=== PATIENT | female | born 1985 | race Caucasian/White ===

== ENCOUNTER 2024-09-29 13:13 | Outpatient (CLI) | payer OTHER, SELFPAY | END 2024-09-29 13:14 | disposition home or self-care (01) | LOC: NFLDREF 10-02 12:02 | PROVIDERS: Visit Provider Obstetrics & Gynecology | DX: Z34.93 Encounter for supervision of normal pregnancy, unspecified, third trimester (principal); E03.9 Hypothyroidism, unspecified; Z3A.28 28 weeks gestation of pregnancy; Z86.2 Personal history of diseases of the blood and blood-forming organs and certain disorders involving the immune mechanism | CPT/HCPCS: 82728; 84443; 86592 ==

== ENCOUNTER 2024-11-12 07:10 | Outpatient (CLI) | payer OTHER, SELFPAY ==
--- OUTSIDE RECORDS SUMMARY | 2024-11-11 15:41 | XMS_ITS | Clinical Summary ---
Author Organization [facility] Address [address] [place] [address] Care Team Providers Care Sleeve Turner Name Role Phone Unavailable Primary Care Provider Unavailabl e Source Comments You are receiving this document as you are listed as the primary care provider,follow-up provider, or the patient has been referred to you for consultation.This is in compliance with the Medicare andMedicaid EHR Incentive Program,which states Providers who transition their patient to another setting of careor provider of care or refers their patient to another provider of care shouldprovide summary care record for each transition of care or referral. [facility] Allergies No known active allergies Medications Medication Sig Dispensed Refills Start Date End Date Status levothyroxine (SYNTHROID) 100 MCG tablet Take 1 Tablet (100 mcg) by mouth daily. Active methocarbamol (ROBAXIN) 500 MG tablet 1 po qd to bid prn muscle spasm 21 Tablet 1 02/01/2024 Active Active Problems No known active problems Social History Tobacco Use Types Packs/Day Years Used Date Smoking Tobacco: Never Passive Smoke Exposure: Never Smokeless Tobacco: Never Tobacco Cessation:Counseling Given: Not Answered Sex and Gender Information Value Date Recorded Sex Assigned at Not on file Gender Identity Not on file Sexual Orientation Not on file Last Filed Vital Signs Vital Sign Reading Time Taken Comments Blood Pressure 112/81 02/01/2024 8:18 AM CDT Pulse 72 02/01/2024 8:18 AM CDT Temperature 36.7 C (98.1 F) 02/01/2024 8:18 AM CDT Respiratory Rate 18 02/01/2024 8:18 AM CDT Oxygen Saturation 100% 02/01/2024 8:18 AM CDT Inhaled Oxygen Concentration - - Weight - - Height - - Body Mass Index - - Plan of Treatment Health Maintenance Due Date Last Done Comments Cervical Cancer Screening Due 1986 Hep C Screening (Preventive Services) 1986 HIV Screening (Preventive Services) 2002 Adult Preventive Visit 2004 DTaP/Tdap/Td (1 - Tdap) 2005 HepB (1) 2005 COVID-19 Vaccine (1 - 2023-2 5 season) 2024 Influenza (#1) 2024 Zoster/Shingles (1 of 2) 2036 HPV Vaccine Aged Out No longer eligi ble based on patient's age to complete this topic HepA Aged Out No longer eligi ble based on patient's age to complete this topic Hib Aged Out No longer eligi ble based on patient's age to complete this topic IPV (Polio) Aged Out No longer eligi ble based on patient's age to complete this topic MCV4 Aged Out No longer eligi ble based on patient's age to complete this topic Pneumococcal Aged Out No longer eligi ble based on patient's age to complete this topic
--- NOTE | 2024-11-12 07:15 | CRLHL7_ITS ---
For Patients: As a result of the Century Cures Act, medical imaging exams and procedure reports are released immediately into your electronic medical record. You may view this report before your referring provider. If you have questions, please contact your health care provider. INDICATION: AMA, hx bariatric surgery COMPARISON: none TECHNIQUE: Real time berg scale imaging of the fetus was performed. FINDINGS/IMPRESSION: Sonographic imaging demonstrates a single living intrauterine gestation. Fetus demonstrates a regular cardiac rate of 155 beats per minute. Fetus has a vertex position. The placenta lies posteriorly. Amniotic fluid volume appears normal and there is a single deepest vertical pocket: 5.3 cm. The estimated weight is 2640gm which lies at the 55th %. BPD 11th percentile. HC 19th percentile. AC 85th percentile. FL 29th percentile. The HC/AC ratio measures 0.97 range (0.93-1.11). Sonographic gestational age 34 weeks 5 days and sonographic due date of 12/19/2024. Good correlation with dates. Dictated by Ta Powell MD @ 11/12/2024 9:21:26 AM (Electronically Signed)
== END 2024-11-12 07:11 | disposition home or self-care (01) ==
PROVIDERS: Visit Provider Obstetrics & Gynecology
DX: O09.519 Supervision of elderly primigravida, unspecified trimester (principal)
CPT/HCPCS: 76816; 82728; 84443; 86787

== ENCOUNTER 2024-11-12 08:10 | Outpatient (CLI) | payer OTHER, SELFPAY | END 2024-11-12 08:11 | disposition home or self-care (01) | LOC: NFLDREF 11-14 04:15 | PROVIDERS: PCP Obstetrics & Gynecology; Visit Provider Obstetrics & Gynecology | DX: O09.513 Supervision of elderly primigravida, third trimester (principal); E03.9 Hypothyroidism, unspecified; Z3A.35 35 weeks gestation of pregnancy | CPT/HCPCS: 82728; 84443; 86787 ==

== ENCOUNTER 2024-11-19 10:45 | Outpatient (CLI) | payer OTHER, SELFPAY | END 2024-11-19 10:46 | disposition home or self-care (01) | LOC: NFLDREF 11-27 18:41 | PROVIDERS: PCP Registered Nurse; Visit Provider Registered Nurse | DX: Z34.93 Encounter for supervision of normal pregnancy, unspecified, third trimester (principal); D64.9 Anemia, unspecified | CPT/HCPCS: 87081; 87653 ==

== ENCOUNTER 2024-12-07 10:40 | Outpatient (RCR) | payer OTHER, SELFPAY ==
--- NOTE | 2024-12-03 13:12 | URNOTE ---
Request received for authorization for Iron Dextran (Infed) ([id number]). Prior authorization is not required as services are based on medical necessity per [facility] site, Ref#[id number].
[2024-12-07 11:20] VITALS: BP 99/65; PULSE 75; RESP 16; TEMP 36.1; O2SAT 95
[2024-12-07] MEDS: IRON DEXTRAN COMPLEX 25 MG in 0.9 % SODIUM CHLORIDE 100 ml 100 ML 402 MG IVPB (11:32)
[2024-12-07 11:54] VITALS: BP 94/62; PULSE 81; RESP 16; O2SAT 96
[2024-12-07] MEDS: IRON DEXTRAN COMPLEX 975 MG in 0.9 % SODIUM CHLORIDE 250 ml 250 ML 269.5 MG IVPB (12:55)
[2024-12-07 14:30] VITALS: BP 100/65; PULSE 74; RESP 16; TEMP 36.3; O2SAT 97
== END 2025-06-05 23:59 | disposition home or self-care (01) ==
LOC: CCIC 10:40
PROVIDERS: Visit Provider Clinical Nurse Specialist
DX: O99.013 Anemia complicating pregnancy, third trimester (principal); D50.9 Iron deficiency anemia, unspecified
CPT/HCPCS: 96365; 96366; J1750; J7050

== ENCOUNTER 2024-12-21 09:21 | Inpatient (IN) | payer OTHER, SELFPAY ==
[2024-12-21] VITALS (115 sets, daily range): BP systolic 83–124; BP diastolic 49–84; PULSE 60–107; TEMP 36.6–37.1; O2SAT 85–100; BMI 27.1
--- NOTE | 2024-12-21 10:01 | P.LDBA_ITS ---
Subjective History of Present Illness Date Seen: 12/21/24 Narrative: Patient is being admitted to Labor and Delivery for IOL due to post term dates. She is a 39 year old at 40 4/7 weeks gestation. Her full history and physical was dictated by Dr. Alcantara on 11/25/24. Please see this for details. Patient seen today in clinic with concerns of decreased movements for the past 2 days. She has IOL scheduled for this Friday at 41 weeks. Patient denies abnormal vaginal discharge, sporadic uterine contractions. Patient with multiple medical comorbidities and due to significant concerns at post term dates, recommendation was given to stay for IOL today and patient prefers this as well. Specific Issues/Plans G 4 P 1021 H&P 11/25 Dr. Alcantara # Transfer of care at 26 5/7 weeks #Advanced Maternal Age NIPT: Not completed, Negative AFP Level 2 US: Basic Anatomy US normal [x] growth US at 34 weeks #Hypothyroidism. On levothyroxine 100 mcg daily outside of Levothyroxine increased to 112 mcg daily on August 16. TSH 2.1 on 09/29 TSH 3.1 on 11/12; increased to 125 on 12/09 125 mcg today; will decrease to 100 mcg daily after of baby and repeat TSH at 6 weeks #History of Anemia Hgb 07/21: 10.2. ferritin level dropped (do not see lab report of ferritin). Had 2 of 5 iron infusions. HGB at 28 weeks: 10.6 mg/dL with ferritin of 11, start PO iron Hemoglobin 10.5, ferritin 5.3 on 11/12/2024 Repeat 12/02: 10.3 #History of gastric sleeve surgery 2014 # closely spaced pregnancies. Delivery 09/25/2023. # history of depression. Never treated with medication. PHQ 5, ARI 7. Increased stress due to recent move. Flu: completed Covid: 11-6-24 05/21/2024: Blood type O positive, antibody screen negative, hemoglobin 11.3, platelets 340, rubella immune, RPR nonreactive, hepatitis-B antigen negative, HIV nonreactive, chlamydia gonorrhea both negative, urine culture negative, hepatitis-C negative, varicella[], NIPT: Negative, drug screen negative, hemoglobin A1c 5.5 07/21/2024: AFP negative. Hemoglobin 10.2. 08/12/2024: TSH 4.59, T4 11.6, T3 14. Vitamin-D 35.3 Pap smear 05/07/2024: Normal, negative HPV 11/15/24: Varicella immune Ultrasound: 05/07/2024 first-trimester ultrasound for dating and viability: size appropriate for gestational age. Yolk sac seen. Normal heart rate observed. Cervix appears long and closed on today's exam. 06/02/2020 1st trimester screen for dating viability: size appropriate for gestational age, LMP, CRL measures 11 weeks 2 days. NT measures 0.82 mm. Normal heart rate observed. Anteverted uterus. Cervix appears long, closed, no funneling. 08/10/2024 anatomy scan: size is slightly smaller for gestational age. (no EFW seen in report) Normal heart rate, amniotic fluid amount within normal limits. The cervix is long with no evidence of funneling. Position transverse head maternal right spine posterior. Placenta posterior grade 1. No gross anomalies seen. Three-vessel cord. Cord insertion normal. 11/12/2024: Cephalic, posterior placenta, SD P 5.3 cm, EFW 55%, AC 85%, all growth parameters within normal ranges. TDAP: 10/27/24 RSV: 10/27/24 PHQ9/GAD7:10/27/24 HGB: 10.5 on 11/12/24 H&P: 11/25/[address] Alcantara GBS: negative OB - Problem Based A/P Additional Plan (1) History of bariatric surgery: Status: Acute (2) Anemia: Status: Acute (3) Hypothyroid: Status: Acute (4) Advanced maternal age (AMA) in : Status: Acute Plan 1. Post term, AMA, hypothyroidism hx: IOL with IV Oxytocin and AROM when able. 2. GBS negative no need for antibiotic prophylaxis. 3. Continuous monitoring. 4. Pain management as needed and per patient preference. OB Exam Physical Exam Vital signs: Temp Pulse BP Pulse Ox 98.8 F 71 106/60 95 12/21/24 09:50 12/21/24 09:35 12/21/24 09:35 12/21/24 09:35 Detailed Labor and Delivery Exam Patient Gravid: Yes Dilation (cm): 3 Effacement (%): 80 Cervix position: mid Consistency: soft Tachysystole: No Fetus (Single) Station: 0 Amniotic Membrane Status: intact Heart Rate Baseline: 135 Monitor Accelerations: Present Monitor Decelerations: None Correction Variability: Moderate (6-25)
[2024-12-21 10:12] LABS: Basophils Absolute Auto 0.01 K/uL (0.00-0.30); Basophils Percent Auto 0.2 % (0.0-3.0); Eosinophils Absolute Auto 0.04 K/uL (0.00-0.50); Eosinophils Percent Auto 0.6 % (0.0-7.0); Hematocrit 35.3 % (33.0-51.0); Hemoglobin* 11.4 gm/dL (12.0-16.0); Immature Granulocytes Abs Auto 0.02 K/uL (0.00-0.30); Immature Granulocytes Pct Auto 0.3 %; Lymphocytes Absolute Auto 1.92 K/uL (0.90-2.90); Lymphocytes Percent Auto 30.5 % (20-44); Mean Corpuscular HGB Conc 32 gm/dL (32-36); Mean Corpuscular Hemoglobin 27 pg (26-34); Mean Corpuscular Volume 85 fL (80-100); Monocytes Percent Auto 7.6 % (0.0-11.0); Neutrophils Absolute Auto 3.82 K/uL (1.7-7.0); Neutrophils Percent Auto 60.8 % (42.0-72.0); Platelet Count* 270 K/uL (140-440); RDW Coefficient of Variation % 17.2 % (11.5-15.5); Red Blood Count 4.17 m/uL (4.00-5.20); White Blood Count* 6.29 K/uL (4.50-11.00)
[2024-12-21 10:17] LABS: Slide Review Reflex No
[2024-12-21] MEDS: OXYTOCIN 30 unit/500 ML in NS 30 UNIT/500 ML BAG IVPB (10:22)
[2024-12-21] MEDS: LACTATED RINGERS 1000 ML 1,000 ML 125 ML IV (10:23)
--- NOTE | 2024-12-21 12:56 | P.OBPN_ITS ---
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 Tolerated well. Continue IV Oxytocin titration. Plans epidural soon.
[2024-12-21] MEDS: ROPIVACAINE 0.2% 100 ml 100 ML 12 MG EPIDURAL (14:18)
[2024-12-21] MEDS: LIDOCAINE 2% (PF) 5 ML VIAL EPIDURAL (14:33)
[2024-12-21] MEDS: PHENYLEPHRINE 100 MCG/ML SYRINGE IVP ×4 (14:39→18:51)
[2024-12-21] MEDS: LACTATED RINGERS 1000 ML 1,000 ML 1125 ML IV (14:40)
--- NOTE | 2024-12-21 14:41 | P.ANBPRC_ITS ---
[facility] Medical History care ?Z34.90 - Encounter for supervision of normal , unspecified, unspecified trimester (ICD-10) Surgical History H/O gastric sleeve ?Z90.3 - Acquired absence of stomach [part of] (ICD-10) Social History What is your current living situation?: I presently have a place to live Problems where you live: no known problems In the past 12 months, utilities in danger of being shut off: no In past 12 months, lack of transportation kept you from medical appts, meetings, work, or getting things needed for daily living: no In the past 12 mos, have been you worried that your food would run out before you had money to buy more?: never true In the past 12 mos, the food you bought just didn't last and you didn't have money to buy more?: never true Smoking Status: Never smoker How often does anyone, including family, friends and others, physically hurt you : never How often does anyone, including family, friends and others, insult or talk down to you: never How often does anyone, including family, friends and others, threaten you with harm: never How often does anyone, including family, friends and others, scream or curse at you: never Meds Home Medications and Allergies Home Medications ?Medication ?Instructions ?Recorded ?Confirmed ?Type calcium carbonate (Tums) 200 mg PO BID PRN 09/15/24 12/21/24 History docosahexaenoic acid 200 mg mg PO 09/15/24 12/21/24 History capsule ( DHA) esomeprazole magnesium 20 mg 20 mg PO QDAY 10/27/24 12/21/24 History capsule,delayed release (Nexium) Allergies Allergy/AdvReac Type Severity Reaction Status Date / Time No Known Drug Allergies Allergy Verified 12/21/24 09:46 Results Labs Labs: Laboratory Results - last 24 hr 12/21/24 10:04 WBC 6.29 RBC 4.17 Hgb 11.4 L Hct 35.3 MCV 85 MCH 27 MCHC 32 RDW Coeff of Mona 17.2 H Plt Count 270 Neut % (Auto) 60.8 Lymph % (Auto) 30.5 [place] % (Auto) 7.6 Eos % (Auto) 0.6 Baso % (Auto) 0.2 Neut # (Auto) 3.82 Lymph # (Auto) 1.92 [place] # (Auto) 0.50 Eos # (Auto) 0.04 Baso # (Auto) 0.01 Abs Immat Gran (auto) 0.02 Imm/Tot Granulo (auto) 0.3 Blood Type O Positive Antibody Screen NEGATIVE Vital Signs Vital Signs: Last Vital Signs Temp 98.6 F 12/21/24 13:31 Pulse 88 12/21/24 14:39 BP 101/60 12/21/24 14:39 Pulse Ox 98 12/21/24 14:41 Weight: 73.845 kg Height: 165.1 cm Anesthesia Procedures Epidural Insertion Patient Location: OB Start Time: 14:15 Stop Time: 14:45 Start Date: 12/21/24 Stop Date: 12/21/24 Reason for Block: primary anesthetic Patient Position: sitting Performed By: Gee Garza Preanesthetic Checklist: IV checked, risks and benefits discussed, surgical consent, monitors and equipment checked, pre-op evaluation, timeout performed and anesthesia consent Prep: chlorhexidine gluconate Monitoring: blood pressure monitoring, 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
--- NOTE | 2024-12-21 17:27 | PM.OBPNL ---
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 Oxytocin had to be stopped at around 2pm, since decelerations were taking longer to recover. Labor Progress: Suspected OP. Maternal Status: Stable Plan Plan: Epidural in place, has had episodes of hypotension that have needed treatment 3 times now. IV Oxytocin is off at the moment. Cervical change has been significant and cervix is very stretchy, but suspect baby is OP. Will try position changes. Re evaluate in 2 hours.
[2024-12-21] MEDS: ACETAMINOPHEN 500 MG TABLET 1000 MG PO (19:20)
[2024-12-21] MEDS: OXYTOCIN 30 unit/500 ML in NS 30 UNIT/500 ML BAG 300 UNIT IVPB (21:02)
--- NOTE | 2024-12-21 21:21 | W.PM.OBVAGDE ---
OB Procedure Vag Delivery Mother Details Mother Details: The patient is a 39 year-old, 4, Para 2, admitted on 12/21/24 at 40 4/7 Days gestation. Admitted for IOL due to post term dates, multiple medical comorbidities and maternal concerns for decreased movements. IOL with IV Oxytocin and AROM. : 4 Para: 2 Weeks Gestation: 40.4 Admission Date: 12/21/24 Additional Details Amniotic Membrane Status: AROM Amniotic Membrane Rupture Date: 12/21/24 Amniotic Membrane Rupture Time: 12:20 Amniotic Membrane Fluid Description: Clear Analgesia/Anesthesia Type: Epidural Waterbirth: No Pitcoin: Yes Intrapartal Events: Labor Induction and Mod/Heavy Meconium Fluid (Light meconium) Induction Method: per pitocin protocol and AROM Labor Onset: 14:30 Complete: 20:31 Pushin:33 Heart: heart tones during second stage were category 2. Variable/early decelerations. OP until complete and pushing. Great maternal efforts and progressive descent with each contraction. Delivery Details Delivery Date: 12/21/24 Delivery Time: 20:58 Route of delivery: Gender: Male Viability: Alive; Heart Rate Present Position at Delivery: OA Delivery Details: Delivered via spontaneous vaginal delivery. Infant was placed on maternal abdomen.? Cord was clamped and cut after a 30-60 second delay. Nose and mouth were bulb suctioned.? Infant weight pending. 1 Minute Interval Total Score: 9 5 Minute Interval Total Score: 9 Additional Details Shoulder Dystocia: No Placenta Delivery Time: 21:09 Placental Delivery Description: Spontaneous Delivery repair: Vicryl Procedure Done: Global Blood Loss: 100 Laceration: Perineal - 2nd Degree Episiotomy Description: None Blood Loss Measurement Type: QBL Bakri Used: No Sponge/Need Count Correct: Yes Cord Vessel Description: 3 Vessels Event Summary Status: Mother and were stable after delivery. Disposition: floor
[2024-12-21] MEDS: IBUPROFEN 600 MG TABLET PO (22:25)
[2024-12-22 00:13] VITALS: BP 105/61; PULSE 89; RESP 14; TEMP 36.8; O2SAT 95
[2024-12-22] MEDS: ACETAMINOPHEN 500 MG TABLET 1000 MG PO ×4 (01:33→23:35)
[2024-12-22] MEDS: IBUPROFEN 600 MG TABLET PO ×3 (04:23→19:50)
[2024-12-22 04:24] VITALS: BP 97/64; PULSE 89; RESP 14; TEMP 36.6
[2024-12-22] MEDS: BENZOCAINE/MENTHOL SPRAY 85 GM AEROSOL 1 APPLIC TOPICAL (04:24)
[2024-12-22 06:13] LABS: Hemoglobin* 9.7 gm/dL (12.0-16.0)
[2024-12-22] MEDS: DOCUSATE SODIUM 100 MG CAPSULE PO (08:12)
[2024-12-22 08:13] VITALS: BP 105/68; PULSE 71; RESP 16; TEMP 36.6; O2SAT 97
--- NOTE | 2024-12-22 09:55 | PM.ANPOST ---
Post Anesthesia Note Post Anesthesia Note Patient seen: Inpatient Respiratory Status: adequate Cardiovascular Status: adequate Mental Status: baseline Pain: adequate Temp: baseline Anesthetic awareness: N/A Complications: none Follow care: none
[2024-12-22 11:43] VITALS: BP 101/65; PULSE 83; RESP 16; TEMP 36.7; O2SAT 96
--- NOTE | 2024-12-22 13:43 | PM.OBPNVD1 ---
OB - PN:Subj Subjective Date Seen: 12/22/24 Narrative: Christa is a 39 year old who was admitted for IOL for post term and proceeded to have a vaginal with a 2nd degree laceration that was repaired.The patient feels well.? The pain is well controlled with current medications.? She has no new complaints.? Urinary output is adequate and she is voiding without difficulty.? Has a good appetite, is tolerating a general diet, is passing flatus, and has had a bowel movement.? Has small amount of rubra lochia.? She is ambulating well. OB - PN: Obj Exam Physical Exam: Vital signs: Temp Pulse Resp BP Pulse Ox O2 Del Method 98.1 F 83 16 101/65 96 Room Air 12/22/24 11:43 12/22/24 11:43 12/22/24 11:43 12/22/24 11:43 12/22/24 11:43 12/22/24 11:43 Narrative: GENERAL APPEARANCE:? normal affect, alert, no distress MOOD:? appropriate Rest of exam deferred since lots of company in the room. See nursing assessments. OB - PN: Obj Data Labs Labs: Laboratory Results - last 24 hr 12/22/24 05:47 Hgb 9.7 L OB - PN: A/P Delivery Assessment and Plan (1) care and examination: Status: Acute (2) (normal spontaneous vaginal delivery): Status: Acute (3) Second degree perineal laceration during delivery: Status: Acute (4) History of bariatric surgery: Status: Inactive (5) Anemia: Status: Inactive (6) Hypothyroid: Status: Acute (7) Advanced maternal age (AMA) in : Status: Resolved (8) Anemia complicating : Status: Acute Plan Comments: PP day #1 Routine care May see as desired Anticipate discharge 12/23/24 Continue iron supplementation for hgb of 9.7
[2024-12-22 16:18] VITALS: BP 100/65; PULSE 83; RESP 16; TEMP 36.7; O2SAT 96
[2024-12-22 19:52] VITALS: BP 96/59; PULSE 83; RESP 16; TEMP 36.4; O2SAT 97
[2024-12-23 01:28] LABS: Rapid Plasma Reagin (RPR) Non Reactive (Non Reactive)
[2024-12-23 01:50] VITALS: BP 94/58; PULSE 71; RESP 16; TEMP 36.8; O2SAT 97
[2024-12-23] MEDS: IBUPROFEN 600 MG TABLET PO (06:12)
--- NOTE | 2024-12-23 07:48 | PM.OBDSVD1 ---
DS: Providers Provider Date Seen: 12/23/24 Date of admission: 12/21/24 09:21 Primary care physician: Not a Local Provider Admitting Clinician: Jenn Leon MD Attending Physician on discharge: Jenn Leon MD Date of Discharge: 12/23/24 DS: Diagnosis Discharge Diagnosis (1) Second degree perineal laceration during delivery: Status: Acute (2) (normal spontaneous vaginal delivery): Status: Acute (3) care and examination: Status: Acute (4) Anemia, : Status: Acute (5) Lactating mother: Status: Acute (6) Hypothyroid: Status: Acute Exam Narrative: Exam Narrative: GENERAL APPEARANCE:? normal affect, alert, no distress? MOOD:? appropriate? CHEST:? clear to auscultation and percussion? HEART:? regular rate and rhythm? ABDOMEN:? soft, non-tender the uterine fundus is U/3 and is appropriate for the stage of recovery. LLQ is non tender to palpation, pain is not reproducible.? PERINEUM:? mild edema of the perineum, there is a 2nd degree laceration that is healing well.? EXTREMITIES:? normal and no edema? Const: Vital Signs, click to edit/add: Vital Signs - 24 hr 12/22/24 08:13 12/22/24 11:43 12/22/24 16:18 Temperature 97.8 F 98.1 F 98.1 F Pulse Rate [Pulse Oximeter] 71 83 83 Respiratory Rate 16 16 16 Blood Pressure [Le ft Arm] 105/68 101/65 100/65 Pulse Oximetry 97 96 96 Oxygen Delivery Me thod Room Air Room Air Room Air 12/22/24 19:52 12/23/24 01:50 Temperature 97.6 F 98.2 F Pulse Rate [Pulse Oximeter] 83 71 Respiratory Rate 16 16 Blood Pressure [Le ft Arm] 96/59 L 94/58 L Pulse Oximetry 97 97 Oxygen Delivery Me thod Room Air Room Air Documenting provider has reviewed patient's vital signs: yes OB - DS: Summary Hospital Course Hospital Course: Christa is a 39 year old G 4 P 2 at 40.4 weeks gestation that was admitted to the Center on 12/21/24 for IOL. She had an uncomplicated vaginal delivery. She delivered a viable male . She is breast feeding. She would like to meet with before discharge and encouraged her to consider PRN and ECFE classes for additional assistance. the patient has done well. Her pain is well controlled with current medications.? She has no new complaints.? Urinary output is adequate and she is voiding without difficulty.? Has a good appetite, is tolerating a general diet, is passing flatus, and has not had a bowel movement.?She has a history of constipation in this . Encouraged increased hydration and fiber and do take a stool softener 1-2 times a day. She also has been anemic during this and outside of . She did receive an iron transfusion at the end of November. She will restart her oral iron and encouraged increased dietary intake. She has not tolerated oral iron pills well in the past causing constipation and GI upset. Will send prescription for liquid iron which she has had more success with in the past. Encouraged her to be seen with changes in energy, lightheaded, or dizzy. Has scant amount of rubra lochia.? She is ambulating well.?She has had two instances of LLQ pain that radiated to her back. States this pain is sharp initially then a dull ache for about 20 minutes. she had an abdominal binder that seems to be helping. We discussed causes such as muscular/skeletal pain or infection. Will collect a UA/UC and she is aware that will not have results for 1-2 days. Encouraged her to return if pain is increasing in intensity or frequency or develops associated symptoms or signs of infection. Peripartum Data Infant delivery method: Vaginal Laceration description: Perineal - 2nd Degree [place] Gender: Male Infant Discharge Plan: Home Status at Discharge Functional status at discharge: independent ambulation Overall status at discharge: patient is progressing back to baseline Time Spent with Patient Time attestation: Total time spent providing and/or coordinating discharge services: Discharge Plan Discharge Disposition: Home, Self-Care Date of Admission: 12/21/24 09:21 Attending Provider on Discharge: Dana Stein Primary Care Provider: Provider,Not a Local Condition: Stable Anticipated Discharge Date/Time: 12/23/24 10:00 Discharge Medications: New docusate sodium 100 mg Capsule 100 mg PO DAILY Qty: 90 1RF Rx Instructions: Take 1-2 tablets daily as needed for constipation. ibuprofen 600 mg Tablet 600 mg PO Q6H PRNQty: 90 0RF ferrous sulfate 300 mg (60 mg iron)/5 mL liquid 300 mg PO Q OTHER DAY Qty: 500 2RF Continued DHA 200 mg capsule 200 mg PO DAILY calcium carbonate [Tums] 200 mg calcium (500 mg) tablet,chewable 200 mg PO BID PRN esomeprazole magnesium [Nexium] 20 mg capsule,delayed release(DR/EC) 20 mg PO QDAY levothyroxine 125 mcg tablet 125 mcg PO QDAY Qty: 14 0RF Discharge Orders: Discharge Order (Routine); Ordered 12/23/24 Ordered By: Dana Stein Patient Education: OB Vaginal/Breast Feeding Additional Instructions: Discharge instructions were reviewed with the patient including signs and symptoms of infection and home going medications.? Lifting Restrictions: 20 pounds for 6? weeks? ?? Do not drive while taking narcotic pain meds.? Off Work or School for 6 weeks.? ?? Symptoms to report to doctor:? -Bleeding that saturates more than one pad per hour? -Passing clots larger than the size of a golf ball? -Pain not relieved by prescribed medication? -Fever above 100.4 degrees Fahrenheit? -A foul vaginal odor? -Difficulty in emotions, mood and functions? -Thoughts of hurting yourself and/or ? -Painful, reddened area in your breast? -Any drainage, redness or tenderness in your IV/epidural site? -Severe headache that doesn't improve after taking medications? -Changes in vision, including temporary loss of vision, blurred vision, and/or light sensitivity? -Upper abdominal pain (usually under ribs on the right side)? -Decrease in urination or painful, frequent urinating? -Chest pain? -Shortness of breath? -Tenderness or pain with redness and/swelling in the calf(s) of your leg? ?? Follow Up in clinic in 2 and 6 weeks.? ?? consultation services are available to all mothers and babies for the first year after delivery.? To make an appointment, please call [phone].? Activity Level: Activity as Tolerated Discharge Diet: Regular Follow Up Appointments: Provider,Not a Local [Primary Care Provider] - [facility] [Provider Group] Forms: MyHealth Info Instructions
[2024-12-23 09:30] VITALS: BP 104/69; PULSE 88; RESP 20; TEMP 36.8; O2SAT 95
[2024-12-23] MEDS: ACETAMINOPHEN 500 MG TABLET 1000 MG PO (09:47)
[2024-12-23] MEDS: DOCUSATE SODIUM 100 MG CAPSULE PO (09:48)
[2024-12-23 10:36] LABS: Appearance Urine Clear (Clear); Bilirubin Urine Negative (Negative); Blood Urine 2+ (Negative); Color Urine Yellow (Yellow); Glucose Urine Negative (Negative); Ketones Urine Negative (Negative); Leukocyte Esterase Urine Negative (Negative); Nitrite Urine Negative (Negative); Protein Urine Negative (Negative); Urobilinogen Urine 0.2 (0.2-1.0); pH Urine 6.5 (5.0-8.5)
[2024-12-23 10:51] LABS: Bacteria Urine Few; Squamous Epithelial Cell Urine Moderate (None-Few); WBC Urine 0-2 (0-5)
== END 2024-12-23 13:45 | disposition home or self-care (01) | DRG 807 ==
PROVIDERS: Advanced Practice Midwife; Admitting Provider Obstetrics & Gynecology; Visit Provider Obstetrics & Gynecology
DX: O48.0 Post-term pregnancy (principal); Z37.0 Single live birth; O36.8130 Decreased fetal movements, third trimester, not applicable or unspecified; O77.0 Labor and delivery complicated by meconium in amniotic fluid; O70.1 Second degree perineal laceration during delivery; O99.284 Endocrine, nutritional and metabolic diseases complicating childbirth; E03.9 Hypothyroidism, unspecified; O99.844 Bariatric surgery status complicating childbirth; Z90.3 Acquired absence of stomach [part of]; O99.02 Anemia complicating childbirth; D64.9 Anemia, unspecified; Z3A.40 40 weeks gestation of pregnancy
CPT/HCPCS: 01967; 36415; 81001; 85018; 85025; 86592; 86850; 86900; 86901; 87086; A9270; J2371; J2795; J7120

== ENCOUNTER 2024-12-29 12:55 | Outpatient (CLI) | payer OTHER, SELFPAY ==
--- NOTE | 2024-12-29 14:37 | P.LACCB_ITS ---
Consult Note - Mom Date of Visit Date of visit: 12/29/24 Reason for consultation: Assistance Needed, Low Milk Supply and Infant Weight Concern Visit Code: Visit Patient's Information Phone number: [phone] : 4 Para: 2 Allergies No Known Drug Allergies Allergy (Verified 12/21/24 09:46) Mother's medical history: Hypothyroid Mother's Medical History: Medical History (Updated 12/29/24 @ 00:01 by Background Daemsurendra) GERD (gastroesophageal reflux disease) ?K21.9 - Gastro-esophageal reflux disease without esophagitis (ICD-10) Hypothyroid ?E03.9 - Hypothyroidism, unspecified (ICD-10) Anemia ?D64.9 - Anemia, unspecified (ICD-10) Atypical mole ?D22.9 - Melanocytic nevi, unspecified (ICD-10) care ?Z34.90 - Encounter for supervision of normal , unspecified, unspecified trimester (ICD-10) Delivery Information Delivery type: Vaginal Gestational Age: 40+4 Gestational Weight For Age: AGA Weight: 3.42 kg Discharge Weight: 3.188 kg Percentage weight loss: 6.8 Baby's Information Baby's Age at Visit: 8 days Baby's Provider or Clinic: [facility] Jaundice: No Past Experience Past Experience: Yes (lost milk supply at 6 months, also got ) Current Frequency of Day Feedings: every 2-3 hours, mostly every 3 Frequency of Night Feedings: same Both Breasts: Yes Suck: strong Latch: usually deep Length of Time: 5 min ea side Goals: as long as possible Pumping Pumping: Yes Quantity Pumped: 20ml total if not latch baby, 7-10 if baby latches first Supplementing EBM Supplement: Yes Formula Supplement: Yes (usually around 40ml, sometimes 50ml) Baby Elimination Number of Wet Diapers a Day: ea feeding Number of BM a Day: 6 or more; yellow, seedy Breast/Nipple Condition Breast Information: Breasts are symmetrical with rounded lower quadrants, intramammary distance is less than 1.5 inches. No erythema. Nipples are supple, everted prior to feeding. Mom feels like her milk is coming in, but not engorged Breast Shape: Round and Pliable Engorgement: No Maternal Nipple Condition - Left: Common Nipple Maternal Nipple Condition - Right: Common Nipple Sore Nipples: No Baby Assessment Skin: Normal Tongue/frenulum: Normal/elastic Palate: Average Lips: Relaxed and Symmetrical Jaw Alignment: Symmetrical Mucosa: [place], moist Onsite Observation Pre-Feed weight: 3.04 kg (down 60 gms from yesterday in clinic) Post-Feed weight: 3.088 kg (nursing 10 min on ea side) Milk Transferred (mL): 48 (babe then took 20ml formula via bottle for a total feeding of 68 ml and was content) Position: Cross cradle Attachment/latch-on achieved: Easily Suck pattern: Suck burst and normal rest Swallow: Occasionally Behavior following feed: Alert, content Pre-Nursing Left Nipple: Within Normal Limits Pre-Nursing Right Nipple: Within Normal Limits Post-Nursing Left Nipple: Within Normal Limits Post-Nursing Right Nipple: Within Normal Limits Assessments/Interventions Assessments/Interventions: observation Trudye latches easily to mom's left breast, audible swallows present but infrequent. Stays engaged with feeding for 10 minutes then gets sluggish at the breast. 12 ml transferred Trudye then latches to mom's right breast; needed to latch several times for babe to have a deep latch for effective milk transfer. Audible swallows again present and more frequent. stays engaged with feeding for 8 minutes and then gets sleepy. 36 ml transferred. Trudye finishes feeding with formula; takes 20 ml via paced bottle feeding and then begins allowing formula to drip from mouth. 68ml for total feeding Education provided: Asymmetric latch technique for wide/deep latch to increase milk, Transfer for baby and increase comfort for mom, Supply/demand nature of milk supply, Need for frequent stimulation/milk removal, Hand expression, Alternative feeding methods (SNS, cup, finger feeding, bottling) and Pumping for milk management Feeding Plan: Breastfeed for 10 on each breast, listening for active swallowing Pump both breasts for: 10-15 minutes after each feeding as able; a full 20 minutes if pumping instead of . Discussed if baby is latched well, he is better than any pump, but he needs the wide deep latch for best milk transfer. Ok to skip nighttime pumpings and return to sleep for health and healing. Offer baby 60 ml of pumped milk and/or formula every 2-3 hours based on feeding cues. Use a syringe/feeding tube, cup, or bottle for feedings based on preference- ok to switch to paced bottle feeding now that larger volumes are needed Rest, and repeat every 2-3 hours, watch for early feeding cues Try skin to skin to increase milk production Hands on pumping, or breast massage prior to expression 2-3 times/day may result in more milk than pumping alone. Consider herbal supplements such as GoLacta (moringa tea), ok to continue with tea with fenugreek and blessed thistle; also discussed Goat's rue tincture via [employer]; discussed not FDA approved for goal of increasing supply, but anecdotally these products do help some women. Discussed role of low hemoglobin in milk supply - mom is working on getting her liquid Iron Rx refilled; discussed iron rich foods to help until that is figured out Follow-Up Suggested follow up: Appointment in 1 week Recommend mom be seen by provider for:: her 2 week follow up as scheduled Time Spent Time spent with patient (min): 75 (reviewing EMR and face to face with patient, and ) Meds Home Medications and Allergies Home Medications ?Medication ?Instructions ?Recorded ?Confirmed ?Type calcium carbonate (Tums) 200 mg PO BID PRN 09/15/24 12/29/24 History docosahexaenoic acid 200 mg 200 mg PO DAILY 09/15/24 12/29/24 History capsule ( DHA) esomeprazole magnesium 20 mg 20 mg PO QDAY 10/27/24 12/29/24 History capsule,delayed release (Nexium) Allergies Allergy/AdvReac Type Severity Reaction Status Date / Time No Known Drug Allergies Allergy Verified 12/21/24 09:46
== END 2024-12-29 12:56 | disposition home or self-care (01) ==
PROVIDERS: Visit Provider Obstetrics & Gynecology
DX: Z39.1 Encounter for care and examination of lactating mother (principal)
CPT/HCPCS: G0463

== ENCOUNTER 2025-01-04 09:36 | Outpatient (CLI) | payer OTHER, SELFPAY | END 2025-01-04 09:37 | disposition home or self-care (01) | LOC: US 09:37 | PROVIDERS: Visit Provider Physician Assistant | DX: O72.1 Other immediate postpartum hemorrhage (principal) | CPT/HCPCS: 76856 ==

== ENCOUNTER 2025-01-05 12:54 | Outpatient (CLI) | payer OTHER, SELFPAY ==
--- NOTE | 2025-01-05 15:30 | W.PM.LAC.MF ---
Follow-Up Note: Mom Date of visit Date of visit: 01/05/25 Reason for consultation: Assistance Needed Visit Code: Visit Patient's Information Allergies No Known Drug Allergies Allergy (Verified 01/04/25 07:42) Delivery Information Delivery type: Vaginal Gestational Age: 40+4 Gestational Weight For Age: AGA Weight: 3.42 kg Last Weight: 3.04 kg Baby's Information Baby's name: Mikie Melendez Baby's Age at Visit: 15 days Baby's Provider or Clinic: [facility] Current Frequency of Day Feedings: every 2 hours Frequency of Night Feedings: every 2-3 hours Both Breasts: Yes Suck: strong Latch: deep, comfortable Length of Time: 10 min ea side, gets tired Pumping Pumping: Yes (after each feeding except middle of the night) Quantity Pumped: 2oz if fed first, 3.5 oz if not feed first Supplementing EBM Supplement: Yes (35-40 ml after most feedings) Formula Supplement: Yes Baby Elimination Number of Wet Diapers a Day: ea feeding Number of BM a Day: 6 or more Breast/Nipple Assessment Breast/Nipple Assessment: Breasts are symmetrical with rounded lower quadrants, intramammary distance is less than 1.5 inches. No erythema. Nipples are supple, everted prior to feeding. Mom's supply has increased significantly since visit 1 week ago; she was getting 10-20 ml/pump and now getting 2-3.5 oz! She does not have a full feeling before feeding, but this does not coincide with how much milk she gets Some soreness with pumping noted so measured for flange size: RIGHT nipple measures 18mm, so 20-22mm flange recommended LEFT nipple measures 20mm, so 22-24mm flange recommended Breast Shape: Round Engorgement: No Maternal Nipple Condition - Left: Common Nipple Maternal Nipple Condition - Right: Common Nipple Sore Nipples: No Onsite Observation Pre-feed weight: 3.204 kg (up 164 gms in 7 days, average 23 gms/day) Post-Feed weight: 3.238 kg Milk Transferred (mL): 34 (34ml transferred from LEFT breast, none transferred from right and baby too sleepy to nurse longer) Pre-Nursing Left Nipple: Within Normal Limits Pre-Nursing Right Nipple: Within Normal Limits Post-Nursing Left Nipple: Within Normal Limits Post-Nursing Right Nipple: Within Normal Limits Assessments/Interventions Assessments/Interventions: Continue with current feeding routine; suggested trying switch nursing and breast compression Nurse each breast for 5 min ea, then start over and utilize breast compression during 2nd round to see if this help babe stay more awake and engaged in feeding Parents feel able to continue triple feeding plan for one more week to determine mom's milk supply and give baby a chance to increase his suck strength to transfer more milk Mom asking questions about pumping routine when she returns to work in 4 weeks discussed pumping every 3 hours, total pumped during day more important than amount pumped at each session Education provided: Asymmetric latch technique for wide/deep latch to increase milk, Transfer for baby and increase comfort for mom, Supply/demand nature of milk supply, Need for frequent stimulation/milk removal, Alternative feeding methods (SNS, cup, finger feeding, bottling) and Pumping for milk management Follow-Up Suggested follow up: Appointment in 1 week Time Spent Time spent with patient (min): 75 (face to face with patient, and ) Meds Home Medications and Allergies Home Medications ?Medication ?Instructions ?Recorded ?Confirmed ?Type docosahexaenoic acid 200 mg 200 mg PO DAILY 09/15/24 01/04/25 History capsule ( DHA) esomeprazole magnesium 20 mg 20 mg PO QDAY 10/27/24 01/04/25 History capsule,delayed release (Nexium) Allergies Allergy/AdvReac Type Severity Reaction Status Date / Time No Known Drug Allergies Allergy Verified 01/04/25 07:42
== END 2025-01-05 12:55 | disposition home or self-care (01) ==
LOC: OB LAC 12:54
PROVIDERS: Visit Provider Obstetrics & Gynecology
DX: Z39.1 Encounter for care and examination of lactating mother (principal)
CPT/HCPCS: G0463

== ENCOUNTER 2025-01-07 06:03 | Day surgery (SDC) | payer OTHER, SELFPAY ==
[2025-01-07] VITALS (12 sets, daily range): BP systolic 75–109; BP diastolic 49–70; PULSE 66–91; RESP 16–18; TEMP 36.2–36.6; O2SAT 96–100; BMI 25.6
--- OUTSIDE RECORDS SUMMARY | 2025-01-07 06:09 | XMS_ITS | Clinical Summary ---
Author Organization [facility] Address [address] [place] [address] Care Team Providers Care Motor Equipment Captain Name Role Phone Unavailable Primary Care Provider [...] [facility] Allergies No known active allergies Medications levothyroxine (SYNTHROID) 100 MCG tablet Take 1 Tablet (100 mcg) by mouth daily. Active methocarbamol (ROBAXIN) 500 MG tablet 1 po qd to bid prn muscle spasm 21 Tablet 1 02/01/2024 Active Active Problems No known active problems Social History Tobacco Use Types Packs/Day Years Used Date Smoking Tobacco: Never Passive Smoke Exposure: Never Smokeless Tobacco: Never Tobacco Cessation:Counseling Given: Not Answered Comments Unknown Sex and Gender Information Value Date Recorded Sex Assigned at Not on file Legal Sex Female 8:03 AM CDT Gender Identity Not on file Sexual Orientation [...] on patient's age to complete this topic Meningococcal B Aged Out No longer el igible based on patient's age to complete this topic Pneumococcal Aged Out No longer eligi ble based on patient's age to complete this topic Insurance [facility]
--- NOTE | 2025-01-07 06:44 | W.PM.H&PU ---
History & Physical Update History & Physical Update H&P Updates: We discussed indication for surgery which is retained products of conception. Reports that this occurred during her last as well. Proposed procedure: Hysteroscopy, dilation and curettage (possible suction and possible sharp) I reviewed how this procedure is performed. This is done in the operating room with conscious sedation and paracervical block (usually). The cervix is dilated open, and a camera or plastic curette is advanced into the uterus. If visualization is appropriate I will use soft tissue shaver to remove the retained products under direct visualization. If visualization is poor or if retained products is copious, will use vacuum. The vacuum then pulls the POC out of the uterus. All tissue removed from the uterus is sent to the lab for testing to verify that tissue was obtained. Ultrasound guidance is generally not required. Risks with a suction curettage include injury to cervix or uterus -. Infection in the uterus resulting in endometritis -. She will receive antibiotics in the IV in the operating room prior to the procedure to prevent infection (200 mg of doxycycline). Chance of Asherman syndrome resulting in inability to conceive a in the future: 11/2499. Chance of anesthesia complications are extremely rare: Less than 1/100,000 especially with negative personal or family history of anesthesia issues. Complications specific to hysteroscopy: Most common is perforation 0.12-1.61% (this is more common with uterine anomalies, or postmenopausal status), fluid overload 0.2%, air embolism <0.1%. We discussed strategies to minimize these risks. Expected recovery: Mild cramping after miscarriage/surgery usually controlled with [id number] extra-strength Tylenol and ibuprofen. Only restriction for activity postoperatively/after a miscarriage is nothing vaginally for 2 weeks (she is currently in her recover so pelvic rest until cleared at her 6 week visit). She should expect to have some bleeding for 2-4 weeks after surgery. All of her questions were answered. After reviewing risk, benefits and alternatives, patients desires to proceed with hysteroscopy, dilation and curettage. Patient's blood type: O+, RhoGAM not indicated
[2025-01-07] MEDS: 0.9 % SODIUM CHLORIDE 500 ML 500 ML 100 ML IV ×3 (07:02→09:07)
[2025-01-07] MEDS: SODIUM CHLORIDE 0.9 % (FLUSH) 10 ML SYRINGE IVF (07:02)
[2025-01-07] MEDS: DOXYCYCLINE HYCLATE 200 MG in 0.9 % SODIUM CHLORIDE 250 ml 250 ML 250 MG IVPB (07:03)
[2025-01-07 07:50] LABS: Hemoglobin* 10.8 gm/dL (12.0-16.0)
[2025-01-07] MEDS: LIDOCAINE 1%-EPI 1:100,000 20 ML INFILTRATI (07:58)
[2025-01-07] MEDS: miSOPROStoL 800 MCG/4 TABLET PR (08:08)
--- NOTE | 2025-01-07 09:02 | W.ANESCHARGE ---
Anesthesia Charges Start Date/Time Anesthesia Start Date: 01/07/25 Anesthesia Start Time: 07:13 Stop Date/Time Anesthesia Stop Date: 01/07/25 Anesthesia Stop Time: 08:51 Coding CPT Codes CPT Codes: ANESTH HYSTEROSCOPE/GRAPH - 33182 ([id number]) P2 - PATIENT W/MILD SYST DISEASE, QK - LAN ENGINEER 2-4 CNCRNT ANES PROC, QX - ELECTRICIAN REFINERY SVC W/ MD MED DIRECTION
--- NOTE | 2025-01-07 09:21 | W.ANESCHARGE ---
Anesthesia Charges Start Date/Time Anesthesia Start Date: 01/07/25 Anesthesia Start Time: 07:13 Stop Date/Time Anesthesia Stop Date: 01/07/25 Anesthesia Stop Time: 08:51 Coding CPT Codes CPT Codes: ANESTH HYSTEROSCOPE/GRAPH - 30733 ([id number]) QK - CHIEF RELAY TESTER 2-4 CNCRNT ANES PROC, QX - WALL COVERING INSTALLER SVC W/ MD MED DIRECTION, P2 - PATIENT W/MILD SYST DISEASE
[2025-01-07] MEDS: ACETAMINOPHEN 500 MG TABLET PO (09:47)
--- NOTE | 2025-01-07 09:50 | W.PM.GYNPROC ---
Procedure Note Time Seen by Provider: 07:00 Date of procedure: 01/07/25 Will [facility] bill your pro fee for this procedure?: Yes Surgeon: Earnestine Alcantara MD Pathology: specimen obtained, sent to pathology (Retained placenta) Procedure Description: Preoperative diagnosis: 39 year-old with with retained placental. Uncomplicated vaginal delivery on 12/21/24. Postoperative diagnosis: Same Procedure: Hysteroscopy, suction and sharp curettage. Anesthesia: Conscious sedation with paracervical block. Surgeon: Earnestine Alcantara MD Specimen: Retained placenta Estimated blood loss: 500 mL UOP: 40 cc Preop Antibiotic: 200 mg of Doxycycline Findings: Exam under anesthesia: Cervix 1 cm dilated. Uterus: Anteverted position, 7 week size, mobile, without nodularity/masses palpable. Adnexa were without fullness or nodularity. On hysteroscopy: Large amount of retained placental that fills up almost the entirety of the cavity. Procedure: Christa was taken to the operating where conscious sedation was found to be adequate. She was placed in the dorsal lithotomy position. An exam under anesthesia was performed with findings stated above. She was then prepped and draped in normal sterile manner. Bladder drained with straight catheterization. A bivalve metal speculum was placed in the vaginal canal. A paracervical block was placed using 1% lidocaine with epinephrine: 5 mL injected at the 4 and 8 o'clock positions on the cervix. The anterior lip of the cervix was then grasped with a long Allis clamp. The cervix did not need dilation. The hysteroscope advanced into the uterus and a diagnostic hysteroscopy was performed with findings stated above. Normal saline was used as the insufflation medium. Soft tissue shaver was used to perform retained placenta resection without much success due to amount of placenta, bleeding obstructing the field of view, and lack of intrauterine distension due to dilated cervix. Switched from 5 mm scope to a 10 mm scope without much improvement in visualization or retention of fluid for uterine distension. The cervix accommodated a 10 Maori suction curettage. The suction curettage was then inserted under direct visualization. The uterus was then gently suction curetted and rotated to clear the uterus of retained placenta. Multiple passes were performed. Patient had increased bleeding that required medical treatments and intermittent bimanual massages. After several passes of the suction curette, posterior uterine wall still had retained placenta. Decision was made to switch to sharp curetting to remove the remaining retained placenta. This was performed until a gritty texture was noted and the uterus was cleared of all remaining products. There was minimal bleeding noted after the curettage was removed. The Allis was removed from the anterior lip of the cervix and excellent hemostasis was noted. All instruments were removed. Debrief performed per protocol and specimen reviewed. Specimen was sent to pathology. The patient tolerated the procedure well. Sponge, lap and needle counts were correct x 2. The patient was taken to the recovery room in stable condition. Fluid deficit at the end of the procedure 400 mL. Total fluid: 5735 mL Hemostatic agents used: 1 g of TXA, 0.2 mg of Methergine x1, 800 mcg of misoprostol rectally
[2025-01-07 10:11] LABS: HGB WITH REFLEX TO FERRITIN 10.8 (12.0-16.0)
--- NOTE | 2025-01-07 11:06 | SUR.PHASEII ---
1100: Cold Rolling Supervisor spoke with Dr. Alcantara. Confirmed HGB 10.8. Per Dr. Alcantara, patient cleared to discharge.
== END 2025-01-07 11:07 | disposition home or self-care (01) ==
PROVIDERS: Visit Provider Obstetrics & Gynecology
PROC: 0UDB8ZZ Extraction of Endometrium, Via Natural or Artificial Opening Endoscopic (ICD-10-PCS; CPT 58558; principal; 2025-01-07 07:15)
DX: O72.0 Third-stage hemorrhage (principal)
CPT/HCPCS: 59160; 00952; 36415; 81025; 82728; 85018; 86850; 86900; 86901; A9270; C1782; J1100; J1885; J2210; J2250; J2405; J2704; J3010; J3490; J7030; J7050

== ENCOUNTER 2025-01-19 13:03 | Outpatient (CLI) | payer OTHER, SELFPAY ==
--- NOTE | 2025-01-19 15:16 | P.LACF_ITS ---
Follow-Up Note: Mom Date of visit Date of visit: 01/19/25 Reason for consultation: Other (follow-up milk supply) Visit Code: Visit Patient's Information Allergies No Known Drug Allergies Allergy (Verified 01/19/25 09:13) Delivery Information Delivery type: Vaginal Gestational Age: 40+4 Gestational Weight For Age: AGA Weight: 3.42 kg Last Weight: 3.4 kg (in clinic) Baby's Information Baby's name: Mikie Melendez Baby's Age at Visit: 29 days Baby's Provider or Clinic: [facility] Medications: eye ointment and amoxicillin Current Frequency of Day Feedings: every 3-3.5 hours Frequency of Night Feedings: every 4-4.5 hours Both Breasts: Yes Suck: strong Latch: deeper Length of Time: 10-15 minutes now, swallowing longer Pumping Pumping: Yes Quantity Pumped: if not nurse first 3-4 oz; if nurses less than 1 oz total Supplementing EBM Supplement: Yes (offering 1 oz after feeding, sometimes not take it all) Formula Supplement: Yes Baby Elimination Number of Wet Diapers a Day: 6+/day Number of BM a Day: 6+/day; yellow, seedy Breast/Nipple Assessment Breast/Nipple Assessment: Breasts are symmetrical with rounded lower quadrants, intramammary distance is less than 1.5 inches. No erythema. Nipples are supple, everted prior to feeding. Mom feels more full prior to feedings now. on 01/07, mom had surgery for retained; she noticed about 2 days after this surgery that Mikie was drinking better when he was nursing and she was getting more when she pumped Breast Shape: Round Engorgement: No Maternal Nipple Condition - Left: Common Nipple Maternal Nipple Condition - Right: Common Nipple Sore Nipples: No Onsite Observation Pre-feed weight: 3.618 kg Post-Feed weight: 3.678 kg Milk Transferred (mL): 60 Pre-Nursing Left Nipple: Within Normal Limits Pre-Nursing Right Nipple: Within Normal Limits Post-Nursing Left Nipple: Within Normal Limits Post-Nursing Right Nipple: Within Normal Limits Assessments/Interventions Assessments/Interventions: weight: 01/05 - 3.204 (last visit) 3/4 - 3.4 (clinic visit, [facility]); gained 196 gm in 6 days 01/18 - 3.61 (clinic visit, ill); gained 210 gm in 7 day 3 - 3.618, here today; Mikie is gaining weight well, even with an illness in the last few weeks. Mom notes her milk is coming in more now, and while they offer the supplement after feeding, sometimes he only takes 10-20ml. observation: Mikie stayed engaged with the feeding session better than he has done previously. Swallows were more audible for 10-12 minutes ea side. He still pulls away from mom and mom is reminded to keep him close to her so his latch stays deep which will help with milk transfer. Discussed if he is latching longer on ea breast, and she is not getting much milk when she pumps after a good feeding, she can stop pumping if it is getting to be too much. Now that her milk is coming in more following the removal of the placental remains, he may nurse every 2-3 hours (vs. every 3-3.5) and get enough milk from her for growth; if she prefers to feed him and then supplement with formula, he can continue feeding his current routine of every 3 hours. I do recommend she continue to pump a few times a day to verify he is continuing to drain her breasts well and help with continuing to build her supply. If he acts content after , ok to not offer supplement with every feeding as long as they are watching for feeding cues that he may need to b reastfeed sooner than the 3-3.5 hours he's doing now. She will be returning to work, discussed bottle volumes; expect 3-3.5 oz based on his current feeding behavior. Education provided: Supply/demand nature of milk supply and Pumping for milk management Follow-Up Suggested follow up: Appointment as needed Time Spent Time spent with patient (min): 60 Meds Home Medications and Allergies Home Medications ?Medication ?Instructions ?Recorded ?Confirmed ?Type docosahexaenoic acid 200 mg 200 mg PO DAILY 09/15/24 01/19/25 History capsule ( DHA) esomeprazole magnesium 20 mg 20 mg PO QDAY 10/27/24 01/19/25 History capsule,delayed release (Nexium) polysaccharide iron complex 50 mg PO QDAY 01/19/25 01/19/25 History ([employer]) Allergies Allergy/AdvReac Type Severity Reaction Status Date / Time No Known Drug Allergies Allergy Verified 01/19/25 09:13
== END 2025-01-19 13:04 | disposition home or self-care (01) ==
LOC: OB LAC 13:04
PROVIDERS: Visit Provider Obstetrics & Gynecology
DX: Z39.1 Encounter for care and examination of lactating mother (principal)
CPT/HCPCS: G0463

== ENCOUNTER 2025-02-02 08:51 | Outpatient (CLI) | payer OTHER, SELFPAY ==
[2025-02-02 14:28] LABS: Chlamydia DNA Amplified* NOT DETECTED (No Detected); GC DNA Amplified* NOT DETECTED (No Detected)
== END 2025-02-02 08:52 | disposition home or self-care (01) ==
PROVIDERS: Visit Provider Registered Nurse
DX: O90.81 Anemia of the puerperium (principal); N89.8 Other specified noninflammatory disorders of vagina; E03.9 Hypothyroidism, unspecified; Z39.2 Encounter for routine postpartum follow-up
CPT/HCPCS: 82728; 84439; 84443; 87491; 87591

== ENCOUNTER 2025-03-18 13:49 | Outpatient (CLI) | payer OTHER, SELFPAY | END 2025-03-18 13:50 | disposition home or self-care (01) | LOC: NFLDREF 03-19 07:04 | PROVIDERS: Visit Provider Registered Nurse | DX: E03.9 Hypothyroidism, unspecified (principal); F41.9 Anxiety disorder, unspecified; F32.A Depression, unspecified; O90.81 Anemia of the puerperium | CPT/HCPCS: 84443 ==

== ENCOUNTER 2025-08-30 13:00 | Outpatient (CLI) | payer OTHER, SELFPAY ==
[2025-08-30 16:51] LABS: Chlamydia DNA Amplified* NOT DETECTED (No Detected); GC DNA Amplified* NOT DETECTED (No Detected)
== END 2025-08-30 13:01 | disposition home or self-care (01) ==
LOC: NFLDREF 13:00
PROVIDERS: Visit Provider Physician Assistant
DX: N93.0 Postcoital and contact bleeding (principal)
CPT/HCPCS: 87491; 87591

== ENCOUNTER 2025-10-27 09:33 | Outpatient (CLI) | payer OTHER, SELFPAY | END 2025-10-27 09:34 | disposition home or self-care (01) | PROVIDERS: PCP Internal Medicine; Visit Provider Internal Medicine | DX: E03.9 Hypothyroidism, unspecified (principal) | CPT/HCPCS: 80053; 80061; 84443 ==